=== PATIENT | male | born 1975 | race Caucasian/White ===

== ENCOUNTER 2019-07-19 10:28 | Outpatient (REF) | payer MEDICAID, SELFPAY ==
[2019-07-19 12:08] LABS: Abs Immature Grans 0.04 k/cumm (0.0-0.09); Absolute Basophil Count 0.02 k/cumm (0.0-0.2); Absolute Eosinophil Count 0.08 k/cumm (0.0-0.7); Absolute Monocyte Count 1.02 k/cumm (0.11-0.7); Absolute Neutrophil Count 9.07 k/cumm (1.2-6.7); Basophils % 0.2; Eosinophils % 0.7; HCT 34.1 % (40.0-50.0); HGB 11.3 g/dL (13.5-17.5); Immature Grans % 0.3; Mean Corp. HGB Concentration 33.1 g/dL (32.0-36.0); Mean Corpuscular Hemoglobin 28.5 pg (27.0-33.0); Mean Corpuscular Volume 86.1 fL (80-95); Mean Platelet Volume 8.3 fL (8.0-11.0); Monocytes % 8.8; RBC 3.96 m/cumm (4.50-6.00); RBC Distribution Width 12.7 % (11.8-14.1); White Blood Cell Count 11.63 k/cumm (4.4-10.8)
[2019-07-19 12:34] LABS: ALT 11 U/L (16-63); AST 13 U/L (15-37); Albumin 3.3 g/dL (3.4-5.0); Alkaline Phosphatase 96 U/L (46-116); Anion Gap 9.3 mmol/L (3-11); BUN 11 mg/dL (7-18); Bilirubin, Total 0.2 mg/dL (0.2-1.0); CO2 28.7 mmol/L (21.0-32.0); Calcium 9.5 mg/dL (8.5-10.1); Calculated LDL 82 mg/dL; Chloride 95 mmol/L (98-107); Cholesterol 118 mg/dL (<200); Glucose 95 mg/dL (74-106); HDL Cholesterol 24 mg/dL (40-60); Potassium 4.9 mmol/L (3.5-5.1); Sodium 133 mmol/L (136-145); Triglyceride 60 mg/dL (<150); Vitamin B12 343 pg/mL (193-986)
[2019-07-19 12:46] LABS: C-Reactive Protein 9.23 mg/dL (0.0-0.3); Creatine Kinase 69 U/L (39-308)
[2019-07-19 14:02] LABS: ESR 112 mm/hr (0-15)
[2019-07-19 14:11] LABS: Platelet Count 869 x1000/uL (130-400)
[2019-07-19 14:12] LABS: Diff Comment PLT Morph Reviewed; RBC Morphology Normal
[2019-07-20 15:26] LABS: ANA Interpretation Negative (Negative)
[2019-07-21 23:34] LABS: HLA-B27 Result Positive
== END 2019-07-19 10:48 ==
LOC: NCHCN 10:28
PROVIDERS: PCP Nurse Practitioner Family; Visit Provider Nurse Practitioner Family
DX: M54.17 Radiculopathy, lumbosacral region (principal); G62.9 Polyneuropathy, unspecified; M24.631 Ankylosis, right wrist
CPT/HCPCS: 80053; 80061; 82550; 85652; 86812; 82607; 85025; 86038; 86140; 86431

== ENCOUNTER 2019-10-06 09:55 | Outpatient (CLI) | payer OTHER, SELFPAY ==
--- NOTE | 2019-10-06 10:00 | DI.RAD_ITS ---
EXAM: XR LUMBAR SPINE AP, LAT INDICATION: RHEUMATOID ARTHRITIS, ANKYLOSING SPONDYLITIS, BACK, NECK PAIN, ID VERIFIED. COMPARISON: No exams were available for comparison TECHNIQUE: 2D digital imaging was performed. FINDINGS: There are thin osteophytes throughout the lumbar spine. Findings are consistent with an inflammatory arthritis such as ankylosing spondylitis. The disc heights are well maintained. No acute fracture or subluxation is seen. The bones are normally mineralized. The soft tissues are unremarkable. The re is a left convex curvature of the lumbar spine. There do appear to be erosions of the sacroiliac joints bilaterally. IMPRESSION: Findings suggestive of an inflammatory arthritis such as ankylosing spondylitis.
--- NOTE | 2019-10-06 10:00 | DI.RAD_ITS ---
EXAM: XR KNEE RT 2V AP,LAT INDICATION: RHEUMATOID ARTHRITIS AND ANKYLOSING SPONDYLITIS, RT KNEE PAIN, ID VERIFIED. COMPARISON: No exams were available for comparison TECHNIQUE: 2D digital imaging was performed. FINDINGS: There is a moderate joint effusion. Mild narrowing in the medial femoral tibial joint space is noted . Small osteophytes are seen at the posterior patella. Bones are intact. The soft tissues are unre markable. IMPRESSION: Mild degenerative changes in the right knee. Joint effusion.
--- NOTE | 2019-10-06 10:00 | DI.RAD_ITS ---
EXAM: XR CERVICAL SP KHAN TRAUMA 2-3V INDICATION: RHEUMATOID ARTHRITIS,ANKYLOSING SPONDYLITIS, BACK, NECK PAIN, ID VERIFIED. COMPARISON: No exams were available for comparison TECHNIQUE: 2D digital imaging was performed. FINDINGS: The odontoid is intact. The lateral masses are well aligned. There is no acute fracture or subluxat ion. Bridging osteophytes are seen throughout the cervical spine consistent with ankylosing spondyli tis. The disc heights are well maintained. There are hypertrophic changes seen at the facet joints. The prevertebral soft tissues are unremarkable. IMPRESSION: Findings suggestive of ankylosing spondylitis. Degenerative changes are seen in the cervical spine.
== END 2019-10-06 10:15 ==
PROVIDERS: PCP Nurse Practitioner Family; Visit Provider Pediatrics Pediatric Rheumatology
DX: M25.561 Pain in right knee (principal); M06.9 Rheumatoid arthritis, unspecified; M25.461 Effusion, right knee; M17.11 Unilateral primary osteoarthritis, right knee; M54.2 Cervicalgia; M54.5 Low back pain; M45.6 Ankylosing spondylitis lumbar region; M45.2 Ankylosing spondylitis of cervical region; M47.812 Spondylosis without myelopathy or radiculopathy, cervical region
CPT/HCPCS: 72040; 72100; 73560

== ENCOUNTER 2020-03-26 11:28 | Outpatient (CLI) | payer MEDICAID, SELFPAY ==
[2020-03-27 09:40] LABS: Hepatitis C Ab w Rflx HCV PCR Negative (Negative)
[2020-03-28 14:14] LABS: TB Interpretation Negative (Negative)
[2020-03-29 14:47] LABS: HBs Antibody, Quant 294.7 mIU/mL (See Note); Hepatitis B Surface Ab Positive (See Note)
[2020-03-29 15:01] LABS: Hepatitis B Surface Ag Negative (Negative)
== END 2020-03-26 11:48 ==
PROVIDERS: PCP Nurse Practitioner Family; Visit Provider Internal Medicine Rheumatology
DX: Z11.59 Encounter for screening for other viral diseases (principal); Z91.89 Other specified personal risk factors, not elsewhere classified; M45.0 Ankylosing spondylitis of multiple sites in spine
CPT/HCPCS: 36415; 86706; 86803; 87340; 86480; 86704; 87350

== ENCOUNTER 2020-09-13 03:47 | Outpatient (CLI) | payer OTHER, MEDICAID, SELFPAY ==
--- NOTE | 2020-09-13 09:43 | DI.RAD_ITS ---
EXAM: XR WRIST RT LIMITED CLINICAL HISTORY: DISABILITY DETERMINATION,Z02.71,RT WRIST PAIN, H/O RA. TECHNIQUE: 2D digital imaging was performed. COMPARISON: No exams were available for comparison FINDINGS: There are advanced degenerative changes seen at the radiocarpal joint with joint space narrowing, sub chondral sclerosis and subluxation. There does appear to be widening of the scapholunate distance alicea ggesting a ligament tear. No acute fracture is identified. The bones are normally mineralized. The re is mild soft tissue swelling on the wrist. No radiopaque foreign bodies are identified. IMPRESSION: DATA REPOSITORY: RADIATION DOSE DELIVERED:
== END 2020-09-13 04:07 ==
PROVIDERS: PCP Nurse Practitioner Family; Visit Provider Pediatrics Pediatric Rheumatology
DX: M25.531 Pain in right wrist (principal); M19.031 Primary osteoarthritis, right wrist; S63.021A Subluxation of radiocarpal joint of right wrist, initial encounter; M79.89 Other specified soft tissue disorders
CPT/HCPCS: 73100

== ENCOUNTER 2022-03-18 03:48 | Outpatient (CLI) | payer MEDICAID, SELFPAY | END 2022-03-18 03:49 | disposition home or self-care (01) | PROVIDERS: PCP Nurse Practitioner Family ==

== ENCOUNTER → 2022-03-31 11:38 | Outpatient (CLI) | payer MEDICAID, SELFPAY ==
--- NOTE | 2022-03-31 | DI.RAD_ITS ---
Exam(s) XR CERVICAL SP COMP W FLEX/EXT EXAM: XR CERVICAL SP COMP W FLEX/EXT CLINICAL HISTORY: Ankylosing spondylitis M45.9, Med use Z79.899, Bilat sacroiliitis M46.1. TECHNIQUE: 2D digital imaging was performed. COMPARISON: CR XR CERVICAL SP KHAN TRAUMA 2-3V from 10/06/2019 FINDINGS: Seven views of the cervical spine There are no acute fractures evident. No prominent Luschka joint osteophytes seen on the oblique vie ws. No cervical ribs. There is mild-moderate multilevel disc space narrowing. There is a Ann axial subluxation. Distance between the posterior arch of C1 and anterior aspect o f the odontoid process is increased to 6 millimeters. No obvious fracture of the C1 arch noted. IMPRESSION: Atlantoaxial subluxation. Recommend follow-up CT scan. DATA REPOSITORY: RADIATION DOSE DELIVERED:
== END ==
PROVIDERS: PCP Nurse Practitioner Family; Visit Provider Nurse Practitioner Family
DX: S13.120A Subluxation of C1/C2 cervical vertebrae, initial encounter (principal); X58.XXXA Exposure to other specified factors, initial encounter
CPT/HCPCS: 72052

== ENCOUNTER 2022-05-09 18:39 | Outpatient (CLI) | payer MEDICAID, SELFPAY ==
[2022-05-09 16:11] LABS: Abs Immature Grans 0.04 10^3/uL (0.0-0.06); Absolute Basophil Count 0.04 10^3/uL (0.0-0.2); Absolute Eosinophil Count 0.26 10^3/uL (0.0-0.7); Absolute Lymphocyte Count 2.97 10^3/uL (1.2-3.4); Absolute Monocyte Count 0.76 10^3/uL (0.1-0.8); Absolute Neutrophil Count 5.86 10^3/uL (1.2-6.7); Basophils % 0.4; Eosinophils % 2.6; HGB 13.1 g/dL (13.5-17.5); Immature Grans % 0.4; Lymphocytes % 29.9; MCH 29.6 pg (27.0-33.0); MCHC 35.4 % (32.0-36.0); MCV 84 fL (80-95); Monocytes % 7.7; Platelet Count 383 10^3/uL (130-400); RBC 4.42 10^6/uL (4.36-5.78); RDW 13.8 % (11.8-14.1); RDW-SD 42.5 fL; WBC 9.93 10^3/uL (4.4-10.8)
[2022-05-09 16:43] LABS: ALT 20 U/L (16-63); AST 16 U/L (15-37); Albumin 3.3 g/dL (3.4-5.0); Alkaline Phosphatase 114 U/L (46-116); Anion Gap 9.1 mmol/L (3-11); BUN 9 mg/dL (7-18); Bilirubin, Total 0.2 mg/dL (0.2-1.0); CO2 25.9 mmol/L (21.0-32.0); CREATININE 0.8 mg/dL (0.70-1.30); Calcium 8.8 mg/dL (8.5-10.1); Chloride 102 mmol/L (98-107); Estimated GFR 111.22 (mL/min/1.73m2); Glucose 91 mg/dL (74-106); Potassium 3.6 mmol/L (3.5-5.1); Sodium 137 mmol/L (136-145); Total Protein 8.4 g/dL (6.4-8.2)
== END 2022-05-09 18:40 | disposition home or self-care (01) ==
LOC: LBO 18:39
PROVIDERS: Visit Provider Nurse Practitioner Family
DX: M46.1 Sacroiliitis, not elsewhere classified (principal); Z79.899 Other long term (current) drug therapy; Z15.89 Genetic susceptibility to other disease
CPT/HCPCS: 36415; 80053; 85025

== ENCOUNTER → 2022-06-05 02:02 | Outpatient (CLI) | payer MEDICAID, SELFPAY ==
--- NOTE | 2022-06-05 13:45 | DI.MRI_ITS ---
Exam(s) MR CERVICAL SPINE WO EXAM: MR CERVICAL SPINE WO CLINICAL HISTORY: NECK PAIN, M54.2, H/O ANKYLOSING SPONDYLITIS, SUBLUXATION ON X-RAY TECHNIQUE: Multiplanar multisequence MRI of the cervical spine was performed without intravenous con trast. COMPARISON: CR XR CERVICAL SP KHAN TRAUMA 2-3V from 10/06/2019 CR XR CERVICAL SP COMP W FLEX/EXT from 03/31/2022 FINDINGS: BONES: Vertebral body heights are maintained. Intervertebral disc spaces are normal. Alignment is nor mal. Bone marrow signal intensity is within normal limits. On the sagittal views the distance between the anterior arch and the odontoid is less than 2 mm. CERVICAL CORD: Craniovertebral junction is unremarkable. The cervical cord is normal size and signal intensity. SOFT TISSUES: Unremarkable. C2-3: No disc herniation or bulge is identified. No significant central spinal canal or neural forami nal stenosis. C3-4: No disc herniation or bulge is identified. No significant central spinal canal or neural forami nal stenosis C4-5: No disc herniation or bulge is identified. No significant central spinal canal or neural forami nal stenosis C5-6: No disc herniation or bulge is identified. No significant central spinal canal or neural forami nal stenosis C6-7: No disc herniation or bulge is identified. No significant central spinal canal or neural forami nal stenosis C7-T1: No disc herniation or bulge is identified. No significant central spinal canal or neural criss inal stenosis IMPRESSION: 1. There is normal alignment of the C1 and C2 vertebra. The distance between the posterior arch of C 1 in the anterior aspect of the odontoid process is less than 2 mm. 2. Normal signal in the spinal cord. 3. No disc herniation, central spinal canal or neural foraminal stenosis is seen in the cervical spin e. DATA REPOSITORY:
== END ==
PROVIDERS: Visit Provider Internal Medicine Rheumatology
DX: M54.2 Cervicalgia (principal)
CPT/HCPCS: 72141

== ENCOUNTER 2023-04-17 01:09 | Outpatient (CLI) | payer MEDICAID, SELFPAY ==
[2023-04-17 13:11] LABS: Abs Immature Grans 0.04 10^3/uL (0.0-0.06); Absolute Basophil Count 0.04 10^3/uL (0.0-0.2); Absolute Eosinophil Count 0.17 10^3/uL (0.0-0.7); Absolute Lymphocyte Count 2.68 10^3/uL (1.2-3.4); Absolute Monocyte Count 0.58 10^3/uL (0.1-0.8); Absolute Neutrophil Count 5.39 10^3/uL (1.2-6.7); Basophils % 0.4; Eosinophils % 1.9; HCT 36.9 % (40.0-50.0); HGB 12.2 g/dL (13.5-17.5); Immature Grans % 0.4; Lymphocytes % 30.1; MCH 28.4 pg (27.0-33.0); MCHC 33.1 % (32.0-36.0); MCV 86 fL (80-95); MPV 8.8 fL (8.0-11.0); Monocytes % 6.5; Neutrophils % 60.7; Platelet Count 423 10^3/uL (130-400); RBC 4.29 10^6/uL (4.36-5.78); RDW 14.1 % (11.8-14.1); RDW-SD 44.3 fL
[2023-04-17 13:39] LABS: ALT 16 U/L (16-63); AST 16 U/L (15-37); Albumin 3.2 g/dL (3.4-5.0); Alkaline Phosphatase 113 U/L (46-116); Anion Gap 8.1 mmol/L (3-11); BUN 13 mg/dL (7-18); Bilirubin, Total 0.3 mg/dL (0.2-1.0); CO2 29.9 mmol/L (21.0-32.0); Chloride 104 mmol/L (98-107); Glucose 83 mg/dL (74-106); Sodium 142 mmol/L (136-145); Total Protein 8.4 g/dL (6.4-8.2)
== END 2023-04-17 01:10 | disposition home or self-care (01) ==
LOC: LBO 01:09
PROVIDERS: Visit Provider Nurse Practitioner Family
DX: M45.9 Ankylosing spondylitis of unspecified sites in spine (principal); M19.031 Primary osteoarthritis, right wrist; Z79.899 Other long term (current) drug therapy; M54.2 Cervicalgia; M25.561 Pain in right knee; M25.562 Pain in left knee
CPT/HCPCS: 36415; 80053; 85025

== ENCOUNTER 2023-11-06 02:38 | Outpatient (CLI) | payer MEDICAID, SELFPAY ==
[2023-11-06 11:08] LABS: Abs Immature Grans 0.04 10^3/uL (0.0-0.06); Absolute Basophil Count 0.04 10^3/uL (0.0-0.2); Absolute Eosinophil Count 0.11 10^3/uL (0.0-0.7); Absolute Lymphocyte Count 2.14 10^3/uL (1.2-3.4); Absolute Monocyte Count 0.61 10^3/uL (0.1-0.8); Basophils % 0.4; HCT 38.3 % (40.0-50.0); HGB 12.5 g/dL (13.5-17.5); Immature Grans % 0.4; Lymphocytes % 19.4; MCH 28.9 pg (27.0-33.0); MCHC 32.6 % (32.0-36.0); MCV 89 fL (80-95); MPV 8.3 fL (8.0-11.0); Monocytes % 5.5; Neutrophils % 73.3; Platelet Count 410 10^3/uL (130-400); RBC 4.33 10^6/uL (4.36-5.78); RDW 13.2 % (11.8-14.1); RDW-SD 42.7 fL; WBC 11.05 10^3/uL (4.4-10.8)
[2023-11-06 11:27] LABS: ALT 17 U/L (16-63); AST 12 U/L (15-37); Albumin 3.3 g/dL (3.4-5.0); Alkaline Phosphatase 96 U/L (46-116); BUN 13 mg/dL (7-18); Bilirubin, Total 0.3 mg/dL (0.2-1.0); CREATININE 0.9 mg/dL (0.70-1.30); Calcium 9.3 mg/dL (8.5-10.1); Chloride 105 mmol/L (98-107); Estimated GFR 106.01 (mL/min/1.73m2); Glucose 81 mg/dL (74-106); Potassium 3.8 mmol/L (3.5-5.1); Sodium 143 mmol/L (136-145); Total Protein 8.2 g/dL (6.4-8.2)
== END 2023-11-06 02:39 | disposition home or self-care (01) ==
PROVIDERS: Visit Provider Internal Medicine Rheumatology
DX: M45.6 Ankylosing spondylitis lumbar region (principal); Z79.899 Other long term (current) drug therapy
CPT/HCPCS: 36415; 80053; 85025

== ENCOUNTER → 2023-12-22 05:02 | Outpatient (CLI) | payer MEDICAID, SELFPAY ==
--- NOTE | 2023-12-22 | DI.RAD_ITS ---
Exam(s) XR KNEE RT 3V AP,LAT,RAMYA EXAM: XR KNEE RT 3V AP,LAT,RAMYA CLINICAL HISTORY: BILAT KNEE PAIN, EFFUSIONS,ANKYLOSING SPONDYLITIS SPINE,M45.9. TECHNIQUE: 2D digital imaging was performed. Three views. COMPARISON: CR XR KNEE RT 2V AP,LAT from 10/06/2019 FINDINGS: BONES: No acute fracture is present. No bony destructive lesion is seen. An exostosis is again low no gurvinder off the posterior femur. JOINTS: Mild periarticular spurring. A small joint effusion is seen. SOFT TISSUE: Normal. IMPRESSION: Mild degenerative changes. Small joint effusion. DATA REPOSITORY: RADIATION DOSE DELIVERED:
--- NOTE | 2023-12-22 | DI.RAD_ITS ---
Exam(s) XR KNEE LT 3V AP,LAT,RAMYA EXAM: XR KNEE LT 3V AP,LAT,RAMYA CLINICAL HISTORY: BILAT KNEE PAIN,EFFUSIONS,ANKYLOSING SPONDYLITIS OF SPINE,M45.9. TECHNIQUE: 2D digital imaging was performed. Three views. COMPARISON: CR XR KNEE RT 3V AP,LAT,RAMYA from 12/22/2023 FINDINGS: BONES: No acute fracture is present. No bony destructive lesion is seen. JOINTS: The knee is normally aligned. A small joint effusion is seen. Joint spaces are maintained. No significant periarticular spurring. SOFT TISSUE: Normal. IMPRESSION: Small joint effusion. DATA REPOSITORY: RADIATION DOSE DELIVERED:
--- NOTE | 2023-12-22 | DI.RAD_ITS ---
Exam(s) XR HIP PELVIS ADULT BL EXAM: XR HIP PELVIS ADULT BL CLINICAL HISTORY: BILAT HIP PAIN,ANKYLOSING SPONDYLITIS OF SPINE,M45.9,M25.551. TECHNIQUE: 2D digital imaging was performed. Three views. COMPARISON: CR XR LUMBAR SPINE AP, LAT from 10/06/2019 FINDINGS: BONES: No acute fracture is present. No bony destructive lesion is seen. JOINTS: The SI joints show significant sclerosis bilaterally, left greater than right. There also er osions of both SI joints, similar to prior study. Syndesmophyte formation is noted along the lower l umbar spine. Findings suspicious for ankylosing spondylitis. There is severe narrowing of the right hip joint space. There is subchondral cysts in the superior right acetabulum. There is mild periar ticular spurring. There is moderate narrowing of the left hip joint space and mild periarticular spu rring. SOFT TISSUE: Normal. IMPRESSION: Severe joint space narrowing of the right hip. Moderate joint space narrowing of the left hip. Scle rosis and erosions of the SI joints consistent with ankylosing spondylitis. DATA REPOSITORY: RADIATION DOSE DELIVERED:
== END ==
PROVIDERS: Visit Provider Nurse Practitioner Family
DX: M17.0 Bilateral primary osteoarthritis of knee (principal)
CPT/HCPCS: 73521; 73562

== ENCOUNTER → 2024-03-25 00:11 | Outpatient (CLI) | payer MEDICAID, SELFPAY ==
--- NOTE | 2024-03-25 11:02 | DI.RAD_ITS ---
Exam(s) XR CHEST 2V PA LATERAL EXAM: XR CHEST 2V PA LATERAL CLINICAL HISTORY: SOB, OCCASIONAL CHEST PAIN R06.02, R07.9 TECHNIQUE: 2D digital imaging was performed. Two views. COMPARISON: CR XR LUMBAR SPINE AP, LAT from 10/06/2019 CR XR HIP PELVIS ADULT BL from 12/22/2023 FINDINGS: HEART: Normal size. Aorta: Not dilated. PULMONARY VASCULATURE: Normal. MEDIASTINUM: Unremarkable. LUNGS: No focal infiltrate or mass. Mildly increased interstitial changes at the lung bases. PLEURAL SPACE: No pleural effusion or pneumothorax. BONE:Unremarkable for age. SOFT TISSUES: Unremarkable. IMPRESSION: No acute abnormality. DATA REPOSITORY: RADIATION DOSE DELIVERED:
== END ==
PROVIDERS: PCP Nurse Practitioner Family; Visit Provider Nurse Practitioner Family
DX: R06.02 Shortness of breath (principal); R07.9 Chest pain, unspecified; K40.20 Bilateral inguinal hernia, without obstruction or gangrene, not specified as recurrent
CPT/HCPCS: 71046

== ENCOUNTER → 2024-03-25 00:47 | Outpatient (CLI) | payer MEDICAID, SELFPAY ==
[2024-03-25] MEDS: Barium Sulfate 2% W/V-Creamy Vanilla Smoothie 450 ML BTL PO ×2 (11:05→11:06)
[2024-03-25] MEDS: Normal Saline - Diluent 50 ML VIAL IJ (13:09)
[2024-03-25] MEDS: Omnipaque 350 MG/ML 100 ML BTL IJ (13:12)
--- NOTE | 2024-03-25 13:45 | DI.CT_ITS ---
Exam(s) CT ABDOMEN PELVIS W EXAM: CT ABDOMEN PELVIS W CLINICAL HISTORY: r/o mass, PALPABLE PROTRUSIONS RLQ, HERNIA, K46.9. TECHNIQUE: Imaging Protocol: Axial computed tomography images with coronal and sagittal reformatted images were created and reviewed CONTRAST MATERIAL: Intravenous: Omnipaque 350 Contrast volume:100 ml Oral: yes / COMPARISON: CR XR HIP PELVIS ADULT BL from 12/22/2023 FINDINGS: ABDOMEN and PELVIS: Lung Bases: No acute findings. Liver: Normal density. No suspicious mass. Gallbladder and biliary tract: No radiodense calculus. No biliary dilation. Pancreas: Normal density. No abnormal calcifications or inflammatory process. No evidence of mass. Spleen: Normal. Kidneys: Normal size, contour and axis. No radiodense stones. No obstructive uropathy. No suspicious masses seen. Adrenal glands: No masses seen. Vasculature: Abdominal aorta non-dilated. Soft tissues: Left inguinal hernia contains a nonobstructed loop of colon, junction of descending and sigmoid. The hernia measures 6.2 by 3.5 by 6.6 cm. Fat containing right inguinal hernia. Bladder: No gross wall thickening. No calculi.No focal mass. Bowel: No obstruction. No bowel wall thickening. Appendix normal. Peritoneal cavity: No ascites. No focal collection. No mesenteric inflammatory response. Bones: Flowing syndesmophytes in the spine. Bilateral SI joint irregularity and sclerosis. Degenera tive changes in both hips, right greater than left. Multiple subchondral cysts in the superior aceta bula. Reproductive organs: Unremarkable. Lymph nodes: No pathologically enlarged lymph nodes. IMPRESSION:: Left inguinal hernia contains a nonobstructed loop of:. Fat containing right inguinal hernia. Bony changes of ankylosing spondylitis. RADIATION DOSE DELIVERED: Total DLP DATA REPOSITORY: All CT scans at this facility are submitted to the National Radiology Data Registry (NRDR) Dose Index Registry (DIR) with the [employer] (ACR). RADIATION OPTIMIZATION: All CT scans at this facility use at least one of these dose optimization te chniques: automated exposure control; mA and/or kV adjustment per patient size (includes targeted exa ms where dose is matched to clinical indication); or iterative reconstruction.
== END ==
PROVIDERS: PCP Nurse Practitioner Family; Visit Provider Nurse Practitioner Family
DX: K46.9 Unspecified abdominal hernia without obstruction or gangrene (principal); K40.20 Bilateral inguinal hernia, without obstruction or gangrene, not specified as recurrent; M45.9 Ankylosing spondylitis of unspecified sites in spine
CPT/HCPCS: 74177; J3490

== ENCOUNTER 2024-05-09 15:24 | Outpatient (CLI) | payer MEDICAID, SELFPAY ==
[2024-05-09 15:28] LABS: HCT 35.8 % (40.0-50.0); HGB 11.9 g/dL (13.5-17.5); MCH 29.4 pg (27.0-33.0); MCHC 33.2 % (32.0-36.0); MCV 88 fL (80-95); MPV 8.8 fL (8.0-11.0); Platelet Count 346 10^3/uL (130-400); RBC 4.05 10^6/uL (4.36-5.78); RDW 13.5 % (11.8-14.1); RDW-SD 43.9 fL; WBC 9.23 10^3/uL (4.4-10.8)
[2024-05-09 15:48] LABS: C-Reactive Protein 3.56 mg/dL (<or=0.5)
[2024-05-09 16:11] LABS: Ferritin 101 ng/mL (26-388)
[2024-05-09 16:16] LABS: Hemoglobin A1C 5.7 % (<5.7)
[2024-05-09 22:33] LABS: PSA, Screening 1.4 ng/mL (<=2.5)
[2024-05-10 13:19] LABS: Vitamin B12 512 pg/mL (193-986)
[2024-05-10 20:47] LABS: Folate 10.3 ng/mL (See Note)
== END 2024-05-09 15:25 | disposition home or self-care (01) ==
LOC: LBO 15:24
PROVIDERS: PCP Nurse Practitioner Family; Visit Provider Surgery
DX: R73.03 Prediabetes (principal); R19.5 Other fecal abnormalities; K46.9 Unspecified abdominal hernia without obstruction or gangrene; R39.9 Unspecified symptoms and signs involving the genitourinary system; M54.17 Radiculopathy, lumbosacral region; M54.14 Radiculopathy, thoracic region; G62.9 Polyneuropathy, unspecified; M45.0 Ankylosing spondylitis of multiple sites in spine; F41.9 Anxiety disorder, unspecified; M10.9 Gout, unspecified; D64.9 Anemia, unspecified
CPT/HCPCS: 36415; 84153; 85027; 82607; 82728; 82746; 83036; 86140

== ENCOUNTER 2024-06-14 19:56 | Day surgery (SDC) | payer MEDICAID, SELFPAY | END 2024-06-14 19:57 | LOC: SUR 19:56 | PROVIDERS: PCP Nurse Practitioner Family; Visit Provider Surgery | DX: Z53.09 Procedure and treatment not carried out because of other contraindication (principal) ==

== ENCOUNTER 2024-08-01 15:34 | Outpatient (CLI) | payer MEDICAID, SELFPAY ==
[2024-08-01 15:41] LABS: Abs Immature Grans 0.08 10^3/uL (0.0-0.06); Absolute Basophil Count 0.04 10^3/uL (0.0-0.2); Absolute Eosinophil Count 0.01 10^3/uL (0.0-0.7); Absolute Lymphocyte Count 2.83 10^3/uL (1.2-3.4); Basophils % 0.3 %; Eosinophils % 0.1 %; HCT 38.1 % (40.0-50.0); HGB 12.3 g/dL (13.5-17.5); Immature Grans % 0.6 %; Lymphocytes % 22.2 %; MCH 28.1 pg (27.0-33.0); MCHC 32.3 % (32.0-36.0); MCV 87 fL (80-95); MPV 8.1 fL (8.0-11.0); Monocytes % 4.7 %; Neutrophils % 72.1 %; Platelet Count 581 10^3/uL (130-400); RBC 4.37 10^6/uL (4.36-5.78); RDW 13.2 % (11.8-14.1); RDW-SD 41.2 fL; WBC 12.73 10^3/uL (4.4-10.8)
[2024-08-01 15:48] LABS: Absolute Neutrophil Count 9.18 10^3/uL (1.2-6.7)
[2024-08-01 16:58] LABS: Ferritin 143 ng/mL (26-388); Folate 9.8 ng/mL (8.6-20.0)
[2024-08-01 17:41] LABS: Vitamin B12 709 pg/mL (193-986)
== END 2024-08-01 15:35 | disposition home or self-care (01) ==
LOC: LBO 15:35
PROVIDERS: PCP Nurse Practitioner Family; Visit Provider Surgery
DX: D64.9 Anemia, unspecified (principal); F10.10 Alcohol abuse, uncomplicated; D84.821 Immunodeficiency due to drugs; Z79.899 Other long term (current) drug therapy; M45.0 Ankylosing spondylitis of multiple sites in spine
CPT/HCPCS: 36415; 82607; 82728; 82746; 85025

== ENCOUNTER 2024-08-02 06:16 | Day surgery (SDC) | payer MEDICAID, SELFPAY ==
--- NOTE | 2024-08-01 16:02 | HPE_ITS ---
Date of service: 08/02/24 Time of Service: 08:23 Assessment and Plan Assessment and plan (1) Prediabetes: Status: Acute (2) Anemia: Status: Chronic Assessment and plan: Plan: EGD & Colonoscopy w/ general & natural airway. Informed consent is obtained for the procedural (explained in simple layman's terms that?the pt and/or family could understand) explaining risks vs benefits and alternatives to the procedure and consequences if we do not do the procedure and need/rational for the procedure. Risks include but are not limited to: bleeding, infection, perforation of colon.? This would necessitate emergency surgery to repair the damage w/ possible ostomy; and other associated complications w/ the required surgery. ? Also complications of anesthesia including aspiration, AZ/CVA/, inability to complete the procedure. I discussed with the?patient would they could expect during the procedure, post procedure and recovery time and risks.? The patient understands that they need to have a ride home after the procedure.? This document was created with voice activated software and may contain errors. 20 mins spent in direct pt care and 5 in non face to face time (3) Immunocompromised state due to drug therapy: Status: Acute (4) Ankylosing spondylitis: Status: Acute (5) Alcohol abuse: History of Present Illness Narrative: Patient is here today for colonoscopy & egd for anemia and CRC screening.??Was started on prednisone for joint pain in low ibuprofen. He is a high risk for perforation and bleeding because of this medication. We are still planning on doing the EGD because his hemoglobin was 12.3 yesterday. We are not going to be doing the hemorrhoid banding today. He has also been having a lot of hip pain and understands that this may exacerbate his hip pain. We can give him medications to deal with postop pain. Patient is in agreement and we will plan on EGD and colonoscopy today. They completed a bowel prep with just a clear yellow residual effluent.? They not having any chest pain or shortness of breath, currently.? They are not experiencing any fever or chills.? They deny any productive cough or upper respiratory tract infection signs or symptoms.? They are not having abdominal pain, or nausea and vomiting.? They have not had any changes in medications, past medical history or past surgical history since previously being seen in the office. They have not had any accidents or have been in the ER since the clinic pre-operative evaluation. ??I reviewed the procedure with the patient today, including risks and benefits of the procedure, and what they could expect at home for recovery.? All questions are answered to the patient?s satisfaction today, and they are stable to proceed with the proposed procedure. The patient is a 48-year-old male who is here today for a colonoscopy. He is mildly anemic with a hemoglobin level of 12.5 and an albumin level of 3.3 as of 10/2023. No ferritin levels were measured at that time. He reports no bowel issues but has noticed blood in his stools, which he attributes to hemorrhoids. The blood can be both bright red and dark. He does not experience pain during bowel movements but has had some acute, transient pain recently. His bowel movements are regular, except when he deviates from his usual diet. He has been experiencing hip problems, diagnosed as arthritis, and finds his hip pain more bothersome than his hernia. 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 He takes ibuprofen as needed for pain relief. He has limited neck mobility and minimal wrist motion due to arthritis. He also mentions urinary flow issues and a new hernia. Despite being prescribed Flomax, he has not started the medication due to concerns about its impact on his blood pressure. His urinary flow improves with increased liquid intake, and he typically wakes up once at night to urinate. He feels that he is able to empty his bladder completely, although he has noticed a change in his urinary stream. He has had a hernia for over a decade, which occasionally requires manual repositioning. He has never had surgery for his hernia. He reports no history of heart attack or stroke. He uses a vaporizer and does not have sleep apnea. He was told he was prediabetic but has not discussed this further. He does not experience heartburn or indigestion and wonders if his symptoms could be related to Humira. He does not have stomach pain. He only experiences indigestion after consuming certain foods like buffalo wings. He used to take Tums frequently during his drinking days but has not used them recently. He has not consumed alcohol for 5 years and does not drink coffee, but consumes about 600 mg of caffeine daily. He has not had any surgeries but has had anesthesia for wisdom teeth extraction. He takes Enbrel on Fridays. Pt seen at the request of PCP regarding colon cancer screening. Pt has never had colon cancer screening before.? They denies problems with constipation or diarrhea.? They deny any pain or difficulty with bowel movements, or rectal ble eding.? There is no family history of any colon cancer.? Pt has not had any unexplained weight loss.? Their appetite is good.? ?They deny heart, lung, or kidney problems. They are not having heartburn or indigestion. They have not had any prior colo-rectal surgery.? The patient has not had a prior prostate.? They deny any problems with anesthesia in the past. RLQ pain. Never took flomax. has L inguinal hernia and occ has to push it back in. Occ blood in stools sometimes both. sometimes drak or bright red. No rectal pain w/ BM. Sometimes pain in LLQ w/ BM. Also has hemorrhoids- outside. The left inguinal hernia is symptomatic and bothersome. The right inguinal hernia is asymptomatic and does not bother him. Doesn't take ibuprofen regularly. Anesthesia: general (without airway) Previous surgical intolerances: No Previous surgical complications: No Pulmonary risk factors: Planned procedure: Yes Sleep apnea risks: No COPD/Asthma/Smoker: vapor. Can climb one flight of stairs (12-13 steps) in less than 30 seconds without stopping and without symptoms: Yes The surgery proposed for this patient is: low risk Active cardiac conditions: none Active risk factors: none ASA (acetylsalicylic acid): ibuprofen. enbrel. Beta blockers: not used Kidneys: no concerns DM:no mi/cva alcohol- no tobacco- vapes + NSAID's coffee- none caffeine- 600mg a day. PSHx wisdom teeth no problems anesthesia. CT: MPRESSION:: Left inguinal hernia contains a nonobstructed loop of:. Fat containing right inguinal hernia. Bony changes of ankylosing spondylitis. ? Review of Systems All systems reviewed & are unremarkable except as noted in HPI and below PFSH All Active Problems Immunocompromised state due to drug therapy (Acute) Bilat ing hernia (Acute) L.R Anemia (Chronic) Degenerative joint disease of left hip (Chronic) Degenerative joint disease of right hip (Chronic) Stool color abnormal (Acute) Urinary symptom or sign (Acute) Hernia (Chronic) Thoracic neuritis (Acute) Lumbosacral neuritis (Acute) Peripheral neuropathy (Acute) Prediabetes (Acute) Arthritis of right wrist (Acute) Ankylosing spondylitis (Acute 10/20/19) Severe. B27 positive, bilateral sacroliitis, lumbar ankylosis, C4-5 bridging osteophyte with C1-2 subluxation, inflammation right wrist, right knee, right ankle Medical History Disorder of sebaceous glands Central serous retinopathy Right eye Alcohol abuse Inguinal hernia Gout Anxiety Surgical History (Updated 08/02/24 @ 06:43 by Phuong Yadav RN) [place] teeth removed Family History Father Alcohol use disorder Substance use disorder Brother Alcohol use disorder Substance use disorder Social History Smoking/Tobacco Use Status: Current-Occasional Tobacco Type: e-cigarettes Quit status: considering quitting Second Hand Exposure: No Counseling given: patient declined (Declined assistance with quitting. Stated he will be able to do this on his own.) Smoking risk assessment performed?: Yes Alcohol Intake: former Drug use: Never Substance use type: does not use Details: vaped this AM Adopted: No Caregiver/Support person: No Foster care: No Household members: other Details: Recovery Home Housing: other Communication Needs: None Education Level: college Details: Associates Degree Do you need help understanding health information?: Rarely Pets and animals: Yes (1) Pets and animals: dog(s) Sexually active: No Do you think of yourself as: straight/heterosexual Current gender identity: male What is your relationship status?: How often do you talk on the phone with friends or family?: three or more times per week How often do you get together with friends or relatives?: three or more times per week Do you belong to any clubs or organized social groups?: yes Panel score (0-1 are the most socially isolated patients): 2 What type of physical activity do you participate in: walking Duration: < 15 minutes/day Frequency: daily Alissa/Oriental Orthodox: Jehovah'S Witness Special alissa needs: No Seatbelt use: always Helmet use: Yes Drive intox or ride w/intox flatbed driver: No Do you feel safe at home: Yes Do you feel safe in your relationship?: Yes Meds Allergies and Home Medications Allergies Allergy/AdvReac Type Severity Reaction Status Date / Time No Known Allergies Allergy Verified 08/02/24 06:42 Home Medications ?Medication ?Instructions ?Recorded ?Confirmed ?Type etanercept 50 mg/mL (1 mL) 50 mg subcut QWEEK 02/04/24 08/02/24 History subcutaneous syringe (Enbrel) celecoxib 200 mg capsule (Celebrex) 200 mg PO BID PRN pain #60 caps 06/14/24 08/02/24 Rx prednisone 20 mg tablet 20 mg PO DAILY 5 days #10 tabs 07/29/24 08/02/24 Rx Exam Narrative Exam Narrative: PHYSICAL EXAM GENERAL APPEARANCE: Alert, healthy appearance, oriented, x 3,? in no acute distress HYDRATION: Well hydrated HEAD, EYES, EARS, NECK, THROAT: Head is normocephalic, pupils equal, round, reactive to light and accommodation, ocular movement intact, sclera clear and no jaundice. ?Dentition intact. pt has decreaed ROM in his neck due to AK. LUNGS: normal respiration/normal chest excursion. ?Clear to auscultation bilaterally. ?No wheeze. ?HEART: Regular rate and rhythm. no murmurs ABDOMEN: soft and non-tender to palpation.? Normal bowel sounds.? Time Spent Time spent with Patient: <40 minutes Time was spent: preparing to see the patient(eg.review tests), obtaining and/or reviewing separately otained hiistory, ordering medications,tests, procedures, referring, communicating with other health resident care director, indepentently interpreting results, counseling the patient, care coordination and other
--- NOTE | 2024-08-01 16:10 | W.PM.ENDDOP ---
Date of service: 08/02/24 Time of Service: 10:30 Endoscopy Report DATE OF PROCEDURE: 08/02/24 PRE-OP DIAGNOSIS: anemia POST-OP DIAGNOSIS: other (Esophagitis-mild) SURGEON: Jillian Courtney ANESTHESIA TYPE: General:No Airway ESTIMATED BLOOD LOSS: 2 PATHOLOGY: other COMPLICATIONS: None DISPOSITION: observation PROCEDURE DESCRIPTION: Informed consent was obtained from the pt; explaining the benefits and Risks: bleeding, infections, perforations {which could require surgery or antibiotics and prolonged hospital stay}, or ostomy, and complications of anaesthesia, regina aspiration). The patient was take to the procedure room and placed in a supine position. Monitors were applied and a time out was done. The patients name, date of , procedure type, allergies to medications and metal in their body was reviewed. A bite block was placed and the patient was sedated. Once sedated and comfortable an Olympus gastroscope (see RN notes for scope #) was advanced through the oropharynx which was grossly normal, and passed into the esophagus. The proximal and mid-esophagus were normal. The distal esophagus does not show any: dilation/strictures/varices or ulcers/bleeding noted. He does have some mild esophagitis. The scope was advanced into the stomach and through the pylorus into the proximal jejunum. A bx is taken for celiac Dx . The duodenum was noted to be normal. Biopsies were done of the duodenal bulb.. The scope was retracted back into the stomach and biopsies were taken of the antrum. There were no gastritis/gastropathy/ ulcers/masses noted. The scope was retroflexed. The cardia and fundus were noted to be normal. There a hiatal hernia noted. The scope was retracted back into the esophagus and biopsies were done of the GE junction (in all 4 quadrants) and distal esophagus (2cm above the GE junction) to rule out Landry's. All specimens are retrieved and no bleeding was noted. The Z line was irregular. The GE junction was at 38 cm. The scope was removed and the patient was woken up and taken back to [facility] in stable condition.
--- NOTE | 2024-08-01 16:11 | COLE_ITS ---
Date of service: 08/02/24 Time of Service: 13:32 Colonoscopy Report Date of procedure: 08/02/24 Pre-op diagnosis general: CRC screening Post-op diagnosis procedure note: same Surgeon: Jillian Courtney Anesthesia Type: General:No Airway Estimated blood loss (mL): 0 Pathology: none sent Complications: None Disposition: same day Prep: Miralax/Dulcolax Procedure Description: After informed consent was obtained, explaining risks of the procedure, incl uding but not limits to: bleeding, infections, complications of anesthesia, perforations (which may require antibiotics and /or surgery and stay in the hospital), and abdominal pain/cramping. The patient was taken to the procedure room and placed in a left decubitous position. Monitors were applied and a time out was done. The patients name, date of , procedure, allergies to medications and metal in their body was reviewed. The patient was then sedated. Once sedated and comfortable a rectal exam was done. External exam was normal. Internal exam revealed a normal sphincter tone and no palpable masses. The prostate no palpable masses The previously lubricated Olympus scope was then introduced (see RN notes for scope number) and retrofelexed. No internal hemorrhoids were identified. The scope was then advanced to the cecum without difficulty. The TI and appendiceal orifice were identified. The scope was then slowly retracted over minutes back into the rectum. Polyps: none Diverticula: None the mucosa is pink and healthy w/ a normal vascular pattern. The scope was removed, and the patient was woken up and taken back to Same day surgery in stable condition. He has an extremely poor prep. There is solid stool that continuously obscures visualization and obstructs the scope. Lesions less than 5 mm may have been missed. The patient tolerated the procedure well and there were no immediate complications. Follow up: The patient should follow up in 5 years due to poor prep unless they develop changes in bowel habits or other new gastrointestinal complaints.
--- NOTE | 2024-08-01 16:12 | W.PM.DSUDISC ---
Date of service: 08/02/24 Discharge Plan Disposition Patient Disposition: Home Condition: Good Discharge Details Reason For Visit: egd and colo Attending Provider: Jillian Courtney Primary Care Provider: Beverly Ni Home Meds and New Rx's Prescriptions: New famotidine [Pepcid] 40 mg tablet 40 mg PO BID Qty: 60 8RF Continued Enbrel 50 mg/mL (1 mL) syringe 50 mg subcut QWEEK celecoxib [Celebrex] 200 mg capsule 200 mg PO BID PRN (Reason: pain) Qty: 60 0RF prednisone 20 mg tablet 20 mg PO DAILY 5 Days Qty: 10 0RF Rx Instructions: take 1 tablet PO QD X 5 days then decrease to 1/2 tablet PO QD X 5 days then stop Discontinued polyethylene glycol 3350 17 gram/dose powder 238 g PO ONCE Qty: 238 0RF Rx Instructions: take per colonoscopy instructions bisacodyl [Dulcolax (bisacodyl)] 5 mg tablet,delayed release (DR/EC) 5 mg PO ONCE Qty: 4 0RF Rx Instructions: take per colonoscopy instructions Discharge Instructions Additional Instructions: DSU Colonoscopy Post-Op Instructions Instructions for Everyone who is given Anesthesia: For your safety, please do the following for the next twenty-four (24) hours: *Do Not operate a motor vehicle (car, truck, motorcycle, etc.) *Do Not drink alcoholic beverages or use any recreational drugs for the first 24 hours or while taking pain medications. The medications in your body may have a reaction that can be dangerous. *Do Not make any important decisions or sign any important papers. Findings: Esophagitis Continue with lifestyle modifications: no alcohol, tobacco products, Aspirin, soda pop/any carbonated beverages, caffeine (including tea & chocolate), and acidic foods, (tomatoes, citrus, onions, peppermints) spicy or fried/fatty foods. Do not lie down for 30 minutes after eating, and do not eat 2 hours prior to bedtime. Avoid wearing tight fitting clothing/ belts -Recommend taking Pepcid daily while you are taking in sayings and prednisone. Follow up: I will send you a letter in 2 to 3 weeks time with the results of the biopsies. Colonoscopy was normal and repeat in 10 years time. 1. No lifting over 20 pounds or strenuous activity for the first 24 hours after your procedure. After 24 hours there are no restrictions on your activity but you may feel fatigued for a few days. 2. After you arrive home you may have a light meal and return to your normal diet as you can tolerate it without feeling sick to your stomach. 3. You may have a bloated, gaseous feeling in your belly (abdomen) after a colonoscopy. Passing gas and belching will help. Walking or lying down on your left side with your knees flexed may relieve the discomfort. Call the office at [phone] (Office) or [phone] (Hospital) right away if you notice any of the following: a.Vomiting of blood or ?coffee ground stools?. b.Rectal bleeding 1Tbsp, blood clots or continuous bleeding. c.Severe belly (abdominal) pain. d.A hard distended belly (abdomen) and an inability to pass gas. 4. Please don?t expect to have a normal BM (bowel movement) for 2-3 days after your procedure. 5. If there are questions regarding the findings of your procedure, please contact your doctor 6. If you are unable to contact your doctor with a problem, contact the hospital at [phone]. 7. Continue all your regular medications unless directed otherwise. I understand the above instructions and have no questions. Signature of Patient or Adult Escort Name of Responsible Adult Escort Signature of Nurse Date/Time Stand Alone Forms: Anesthesia Discharge Sylvia Fierro (ALEXU) Activity:: see above Diet:: see above DS: Diagnosis Discharge Diagnosis (1) Prediabetes: Status: Acute (2) Anemia: Status: Chronic Asessment and Plan: The patient is seen and examined after their colonoscopy.? The patient has been able to pass gas.? They are not having abdominal pain.? They have been able to tolerate liquids and a snack.? They do not have any nausea or vomiting.? They are not having any chest pain or shortness of breath.??? They are not having any rectal bleeding. Their vital signs have been stable-see nursing notes. We discussed findings during their colonoscopy, and any biopsies that were done/polyps that were removed. The patient will be sent a letter with any biopsy results, and when to repeat the colonoscopy.-see discharge instructions. Patient was given explicit instructions to follow-up regarding colonoscopy-refer to discharge instructions.? We reviewed resumption of medications. Patient verbalized understanding and discharged in stable and satisfactory condition- See nursing notes. (3) Immunocompromised state due to drug therapy: Status: Acute (4) Ankylosing spondylitis: Status: Acute (5) Alcohol abuse: (6) Esophagitis determined by endoscopy: Status: Acute
[2024-08-02 06:22] VITALS: BP 118/87; PULSE 101; RESP 18; TEMP 36.7; O2SAT 98
[2024-08-02] MEDS: Normal Saline 500 ML 30 ML IV (06:56)
--- NOTE | 2024-08-02 07:06 | ANES.PREOP_ITS ---
General Info Date of Service Date Performed: 08/02/24 Height: 5 ft 6 in Weight: 80.3 kg Body Mass Index (BMI): 28.5 Surgical Procedure: Operation Date: 08/02/24 07:40 Proposed Procedure Side Surgeon p Colonoscopy/Possible Gastroscopy Jillian Courtney, s Possible Hemorrhoid Banding Jillian Courtney DO Actual Procedure Side Surgeon p Colonoscopy/Possible Gastroscopy Not Applicable Jillian Courtney DO s Possible Hemorrhoid Banding Not Applicable Jillian Courtney DO Pre-Op Diagnosis Post-Op Diagnosis Anemia Meds Allergies and Home Medications Allergies Allergy/AdvReac Type Severity Reaction Status Date / Time No Known Allergies Allergy Verified 08/02/24 06:42 Home Medication ?Medication ?Instructions ?Recorded etanercept 50 mg/mL (1 mL) 50 mg subcut QWEEK 02/04/24 subcutaneous syringe (Enbrel) celecoxib 200 mg capsule (Celebrex) 200 mg PO BID PRN pain #60 caps 06/14/24 prednisone 20 mg tablet 20 mg PO DAILY 5 days #10 tabs 07/29/24 Current Visit Medications: Current Medications Generic Name Dose Route Start Last Admin Trade Name Freq PRN Reason Stop Dose Admin Sodium Chloride 500 mls @ 30 mls/hr 08/02/24 06:50 08/02/24 06:56 Saline 500ml Bag IV 09/01/24 06:49 30 mls/hr INFUSION ARIK Administration IV Miscellaneous Supplies 1 each 07/05/24 06:00 Iv Access IV 08/03/24 23:59 DIRECTED ARIK Sodium Chloride 0 ml 07/05/24 06:00 Normal Saline Flush 10 Ml Syr IV 08/03/24 23:59 PRN PRN Sodium Chloride 0 ml 07/05/24 06:00 Normal Saline 10 Ml Vial IJ 08/03/24 23:59 DIRECTED PRN Sterile Water 0 ml 07/05/24 06:00 Water,Injection,Sterile 10 Ml Vial IJ 08/03/24 23:59 DIRECTED PRN PFSH Active Problems Active Problems: Problem Status Onset Code Immunocompromised state due to drug therapy Acute D84.821, Z79.899 Bilat ing hernia Acute K40.20 Anemia Chronic D64.9 Degenerative joint disease of left hip Chronic M16.12 Degenerative joint disease of right hip Chronic M16.11 Stool color abnormal Acute R19.5 Urinary symptom or sign Acute R39.9 Hernia Chronic K46.9 Thoracic neuritis Acute M54.14 Lumbosacral neuritis Acute M54.17 Peripheral neuropathy Acute G62.9 Prediabetes Acute R73.03 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 Stated he will be able to do this on his own.) Alcohol Alcohol Intake: former Substance Use Substance use: Never Substance use type: does not use Details: vaped this AM Vital Signs and Lab Results Vital Signs Most Recent Vital Signs in EMR: Most Recent Vital Signs Temp Pulse Resp BP Pulse Ox 36.7 C 101 H 18 118/87 98 08/02/24 06:22 08/02/24 06:22 08/02/24 06:22 08/02/24 06:22 08/02/24 06:22 Lab Results Blood Type / Crossmatch: 2 No Data to Display Complete Blood Count: 2 White Blood Count 12.73 10^3/uL (4.4-10.8) H 08/01/24 15:29 Red Blood Count 4.37 10^6/uL (4.36-5.78) 08/01/24 15:29 Hemoglobin 12.3 g/dL (13.5-17.5) L 08/01/24 15:29 Hematocrit 38.1 % (40.0-50.0) L 08/01/24 15:29 Platelet Count 581 10^3/uL (130-400) H 08/01/24 15:29 Complete Metabolic Panel: 2 No Data to Display Liver Function Panel: 2 No Data to Display Coagulation Panel: 2 No Data to Display Cardiac Panel: 2 No Data to Display Arterial Blood Gas: 2 No Data to Display Venous Blood Gas: 2 No Data to Display Pancreas Panel: 2 No Data to Display Thyroid Panel: 2 No Data to Display Infectious Disease: 2 No Data to Display Blood Cultures: 2 No Data to Display Toxicology Panel: 2 No Data to Display Anesthesia Assessment and Plan Anesthesia History Personal History: No History of Anesthesia Complications Family History: No Family History of Anesthesia Complications Exercise Tolerance Exercise Tolerance: Metabolic Equivalents>4 Pertinent Negatives Pertinent Negatives: No Symptoms of GERD, No Major Cardiovascular Symptoms or Complaints, No Major Pulmonary Symptoms or Complaints and No History of CVA/TIA Cardiac & Pulmonary Exam Cardiac Exam: Normal S1/S2 Heart Sounds Pulmonary Exam: Clear Bilateral Breath Sounds Implantable Cardiac Device Does patient have a Pacemaker or an ICD?: No Airway Exam Known Difficult Airway: No Mallampati Class: 2 Mouth Opening: Normal (> 3cm) Thyromental Distance: Greater than 3 cm Neck Range of Motion: Limited ROM and History of Cervical Fusion (osteophytic bridging and fusion of C4-5) Neck Circumference: Normal Teeth Condition: Normal Dentition and Loose or Chipped Tooth Numberin 1. Reports chipped 2. Reports chipped ASA Classification ASA Score: ASA 3 Emergency Case?: No NPO Status NPO Status: NPO Clears >2 hours, Solids >8 hours Anesthesia Plan Resuscitation Status: Full Code Anesthesia Technique: General Anesthesia Airway Planned: Natural Airway Monitors Used: Standard Monitors Preoperative Comments:: Discussed increased risk related to severe airway ROM limitation. Discussed risk of pain with postitioning due to degenerative joint changes. Patient aware of concern. All questions answered. Patient wishes to proceed.
[2024-08-02 07:38] VITALS: BMI 28.5
--- NOTE | 2024-08-02 08:35 | STOM_PTH ---
PATIENT: Faheem Medina LOC: [facility] U#:[id number] AGE/SX: 49/M ROOM: RE08/02/[address]: Jillian Courtney : 1975 BED: DIS: 08/02/2024 SPEC #: [id number] RECD: 08/02/24 12:48 STATUS: CARINE REAnne-Marie #: [id number] JOSETTE: 08/02/24 08:[address]: Jillian Courtney DEPT: Surgical Specimen RECD BY: Mallorie Trujillo ENTERED: 08/02/24 12:55 SP TYPE: STOMACH OTHR DR: Beverly Ni APRN Tissues: 1 - BIOPSY BOWEL 2 - BIOPSY BOWEL 3 - STOMACH BIOPSY 4 - STOMACH BIOPSY 5 - ESOPHAGUS BIOPSY 6 - ESOPHAGUS BIOPSY Procedures: GROSS AND MICRO LEVEL 4 Comments: [id number]
[2024-08-02 09:23] VITALS: BP 127/75; PULSE 75; RESP 19; TEMP 36.7; O2SAT 99
[2024-08-02 09:46] VITALS: BP 120/90; PULSE 62; RESP 20; TEMP 36.6; O2SAT 99
--- NOTE | 2024-08-02 11:23 | W.ANESPOSTOP ---
Postoperative Evaluation Date, Time and Location Date Performed: 08/02/24 Time Performed: 09:24 Patient Location: Day Surgery Unit Vital Signs Most Recent Imported Vital Signs: Most Recent Vital Signs Temp Pulse Resp BP Pulse Ox 36.6 C 62 20 120/90 99 08/02/24 09:46 08/02/24 09:46 08/02/24 09:46 08/02/24 09:46 08/02/24 09:46 Pain Score Most Recent Pain Score: Most Recent Pain Score Pain Level 2 08/02/24 06:22 Assessment Mental Status: Awake (Alert & Oriented to Patient Baseline) Airway and Respiratory Function: Patent airway with normal (patient baseline) respiratory exam Cardiovascular Function: Hemodynamically Stable Hydration Status: Adequately Hydrated Nausea & Vomiting: No Nausea or Vomiting Pain: Pain is tolerable per patient Peripheral Nerve Block: Patient did not receive a nerve block
== END 2024-08-02 10:05 | disposition home or self-care (01) ==
LOC: SUR 06:17
PROVIDERS: PCP Nurse Practitioner Family; Visit Provider Surgery
PROC: (CPT 45378; principal; 2024-08-02 07:30)
DX: R73.03 Prediabetes (principal); K20.90 Esophagitis, unspecified without bleeding; Z12.11 Encounter for screening for malignant neoplasm of colon; D64.9 Anemia, unspecified; K31.89 Other diseases of stomach and duodenum; K31.A0 Gastric intestinal metaplasia, unspecified; K21.9 Gastro-esophageal reflux disease without esophagitis
CPT/HCPCS: 45378; 43239; 88305; J1885; J2003; J2704